=== PATIENT | male | born 1960 | race Caucasian/White ===

== ENCOUNTER 2016-11-10 08:48 | Emergency (ER) | payer OTHER ==
[~2016-11-10] VITALS: Ht 193 cm; Wt 89.0 kg
[~2016-11-10 08:48] MED LIST: ASPI325T; ATEN1TAB74 PO; CLIDINIUM; LEVO150T46; MEVA40TA6; [UNRECOGNIZED DRUG - CODE]
[2016-11-10 08:54] VITALS: BP 136/85; PULSE 87; RESP 16; TEMP 97.9; O2SAT 98
[2016-11-10] MEDS ORDERED: LOVA40TA PO (09:05)
[2016-11-10] MEDS ORDERED: OMEP20TA PO (09:05)
[2016-11-10] MEDS ORDERED: LEVO25TA4 PO (09:05)
[2016-11-10] MEDS ORDERED: ATEN50TA PO (09:05)
[2016-11-10] MEDS ORDERED: ASPI-110 PO (09:05)
--- NOTE | 2016-11-10 09:27 | PD ---
HPI Chief Complaint: Cold / Flu Symptoms Time Seen by Provider: 09:03 Travel History International Travel<30 days: No Contact w/Intl Traveler<30days: No Traveled to known affect area: No History of Present Illness HPI This patient complains of red itchy eyes. He has had some nasal congestion and sore throat. He saw his primary physician who gave him a course of amoxicillin which she took without any change in symptoms. He has no documented fever. No vomiting or GI symptoms. Symptoms are of mild to moderate severity. PFSH Past Medical History Heart Rhythm Problems: Yes Cardiovascular Problems: Yes (MVP) High Cholesterol: Yes Diminished Hearing: No GERD: Yes Thyroid Disease: Yes (HYPO) Tetanus Vaccination: > 5 Years Influenza Vaccination: Yes Past Surgical History Surgical History: No Previous Surgery Social History Alcohol Use: No Tobacco Use: No Substance Use: No Allergies-Medications (Allergen,Severity, Reaction): Coded Allergies: No Known Allergies (Verified , 11/10/16) Reported Meds & Prescriptions Reported Meds & Active Scripts Active Reported Aspirin 81 (Aspirin) 81 Mg Tabdr 162 Mg PO HS Omeprazole 20 Mg Tab 20 Mg PO DAILY Lovastatin 40 Mg Tab 40 Mg PO HS Levothyroxine (Levothyroxine Sodium) 25 Mcg Tab 15 Mcg PO DAILY Atenolol 50 Mg Tab 50 Mg PO DAILY Review of Systems Eyes: Positive: Redness HENT: Positive: Sore Throat, No: Headaches Cardiovascular: No: Chest Pain or Discomfort Physical Exam Narrative CARDIOVASCULAR: Regular rate and rhythm without murmur. Extremities showed no edema or varicosities. RESPIRATORY: Respiratory effort unlabored, no retractions or use of accessory muscles. Breath sounds are clear and symmetric. NECK: Symmetrical appearance, midline trachea. No mass or crepitus. Thyroid without enlargement, tenderness, or mass. Throat clear Sclerae show bilateral diffuse injection with normal pupil function Data Data Last Documented VS Vital Signs Date Time Temp Pulse Resp B/P Pulse Ox O2 Delivery O2 Flow Rate FiO2 11/10/16 08:59 11/10/16 08:54 97.9 87 16 98 MDM Medical Decision Making Medical Screen Exam Complete: Yes Emergency Medical Condition: Yes Medical Record Reviewed: Yes Differential Diagnosis URI, sinusitis, conjunctivitis Narrative Course I have reviewed the patient's electronic medical record. Patient seems most consistent with URI and conjunctivitis, likely viral origin. Has already tried antibiotics without any change. Supportive care discussed and primary care follow-up recommended Diagnosis Primary Impression: Acute viral syndrome Additional Instructions: The patient was advised to follow up with their physician and return if they worsen. Med/Other Pt SpecificInfo: Other Disposition: 01 DISCHARGE HOME Condition: Stable Evans Kent MD Nov 10, 2016 09:27
== END 2016-11-10 09:34 | disposition home or self-care (01) ==
LOC: PHEFT 08:48
DX: B34.9 Viral infection, unspecified (principal); E78.00 Pure hypercholesterolemia, unspecified; E03.8 Other specified hypothyroidism
CPT/HCPCS: 99283